=== PATIENT | female | born 1960 | race Caucasian/White ===

== ENCOUNTER 2017-05-26 13:33 | Emergency (ER) | payer BC ==
[2017-05-26] MEDS ORDERED: SODIUM CHLORIDE 0.9% 1000ML 1,000 ML IV ONE (13:54)
[2017-05-26] MEDS ORDERED: MORPHINE SULFATE 10 MG/ML SOL IV ONE ×2 (13:54→14:16)
[2017-05-26] MEDS ORDERED: MORPHINE SULFATE 10 MG/ML SOL ONE (13:55)
[2017-05-26 14:11] LABS: BASOPHILS % (AUTO) 1 % (0-3); EOSINOPHILS % (AUTO) 1 % (0-9); HEMATOCRIT 36 % (35-47); MEAN CORPUSCULAR HGB CONC 34.6 gm/dl (32.0-36.0); MONOCYTES % (AUTO) 7.3 % (0-12); NEUTROPHILS % (AUTO) 58.3 % (37-80)
[2017-05-26 14:16] LABS: MEAN CORPUSCULAR VOLUME 79 fL (81-99)
[2017-05-26] MEDS ORDERED: ONDANSETRON HCL 4 MG/2 ML SOL ONE (14:20)
[2017-05-26] MEDS ORDERED: ONDANSETRON HCL 4 MG/2 ML SOL IV ONE (14:22)
[2017-05-26 14:26] LABS: ALBUMIN 3.2 gm/dl (3.4-5.0); POTASSIUM 4.1 mMol/L (3.5-5.1)
[2017-05-26] MEDS ORDERED: FENTANYL 100MCG/2ML SOL IV ONE (14:41)
[2017-05-26] MEDS ORDERED: FENTANYL 100MCG/2ML SOL ONE (14:43)
[2017-05-26 15:20] VITALS: RESP 20
[2017-05-26 15:20] LABS: APPEARANCE,URINE Slightly Cloudy; BILIRUBIN,URINE NEGATIVE (NEGATIVE); COLOR,URINE Yellow; GLUCOSE, URINE (UA) NEGATIVE (NEGATIVE); KETONES,URINE NEGATIVE (NEGATIVE); LEUKOCYTE ESTERASE ,URINE NEGATIVE (NEGATIVE); NITRATE,URINE NEGATIVE (NEGATIVE); OCCULT BLOOD,URINE 3+ (NEG-TRACE); UROBILINOGEN,URINE 0.2 (0.2-1.0 EU)
[2017-05-26 15:21] VITALS: TEMP 97
[2017-05-26 15:39] LABS: RBC,URINE 70-80 (0-3AV/HPF); WBC,URINE 0-3 (0-5AV/HPF)
[2017-05-26] MEDS ORDERED: KETOROLAC TROMETHAMINE 30 MG/ML SOL IV ONE (16:07)
[2017-05-26] MEDS ORDERED: KETOROLAC TROMETHAMINE 30 MG/ML SOL ONE (16:15)
[2017-05-26 16:58] VITALS: BP 144/68; PULSE 80; O2SAT 95
== END 2017-05-26 16:53 | disposition home or self-care (01) ==
LOC: ED 13:33
DX: N20.1 Calculus of ureter (principal)
CPT/HCPCS: 36415; 74177; 80053; 81001; 85025; 96365; 96366; 96374; 96375; 99284; 99285; J1885; J2270; J2405; J3010; Q9967

== ENCOUNTER 2018-11-11 21:57 | Emergency (ER) | payer BC | END 2018-11-11 23:59 | disposition home or self-care (01) | LOC: ED 21:57 ==